=== PATIENT | female | born 1955 | race Caucasian/White ===

== ENCOUNTER 2017-07-21 13:27 | Emergency (ER) | payer OTHER ==
[~2017-07-21] VITALS: Ht 160 cm; Wt 125.0 kg
[2017-07-21 13:28] VITALS: BP 157/98; PULSE 77; RESP 14; TEMP 98.2; O2SAT 98
[2017-07-21] MEDS ORDERED: METF500T PO (14:10)
[2017-07-21] MEDS ORDERED: HYDR12.56 PO (14:10)
[2017-07-21] MEDS ORDERED: LISI10TA3 PO (14:10)
[2017-07-21] MEDS ORDERED: METO-309 PO (14:10)
[2017-07-21] MEDS ORDERED: CYMB30CA PO (14:10)
[2017-07-21] MEDS ORDERED: ALPR.5 PO (14:10)
--- NOTE | 2017-07-21 14:25 | PD ---
HPI Chief Complaint: Injury Time Seen by Provider: 14:14 Travel History International Travel<30 days: No Contact w/Intl Traveler<30days: No Traveled to known affect area: No History of Present Illness HPI 62-year-old female presents to the emergency department for evaluation of left ankle injury. Patient states that on Saturday, she twisted her left ankle. She states she did okay after this, the next day she noticed some swelling and pain in her ankle, especially in relation. She does report a history of surgery to the left ankle with plates and screws back in 2002. She does report some erythema to the left lateral ankle or her scar is. She denies any fevers or chills. She does have history of hypertension and [id number] diabetes. Patient reports ambulation exacerbates pain, rest alleviates pain. She denies any other complaints at this time. PFSH Past Medical History Blood Disorders: No Anxiety: Yes Cancer: No Cardiovascular Problems: Yes Diabetes: Yes Patient Takes Glucophage: Yes Diminished Hearing: No Endocrine: No Genitourinary: No Headaches: Yes Hypertension: Yes Immune Disorder: No Psychiatric: No Reproductive: No Respiratory: No Tetanus Vaccination: < 5 Years ?: Not Past Surgical History Abdominal Surgery: Yes (CHOLICYSTECTOMY) AICD: No Arteriovenous Shunt: No Cardiac Surgery: No Ear Surgery: No Endocrine Surgery: No Eye Surgery: No Genitourinary Surgery: No Gynecologic Surgery: Yes ( *2) Insulin Pump: No Joint Replacement: No Oral Surgery: No Pacemaker: No Thoracic Surgery: No Other Surgery: Yes Social History Alcohol Use: No Tobacco Use: No Substance Use: No Allergies-Medications (Allergen,Severity, Reaction): Coded Allergies: No Known Allergies (Verified Allergy, Mild, 12/16/03) Uncoded Allergies: NKA (Allergy, Unknown, 05/18/03) Reported Meds & Prescriptions Reported Meds & Active Scripts Active Reported Lisinopril 10 Mg Tab 10 Mg PO BID Hydrochlorothiazide 12.5 Mg Tab 12.5 Mg PO DAILY Cymbalta DR (Duloxetine HCl) 30 Mg Capdr 30 Mg PO BID Xanax (Alprazolam) 0.5 Mg Tab 0.5 Mg PO DAILY PRN Metformin (Metformin HCl) 500 Mg Tab 500 Mg PO BIDPC Lopressor (Metoprolol Tartrate) 50 Mg Tab 25 Mg PO BID Review of Systems Except as stated in HPI: all other systems reviewed are Neg Physical Exam Narrative GENERAL: Well-nourished, well-developed female patient ambulatory. Afebrile., SKIN: Focused skin assessment warm/dry. HEAD: Normocephalic. Atraumatic. EYES: No scleral icterus. No injection or drainage. NECK: Supple, trachea midline. No JVD or lymphadenopathy. CARDIOVASCULAR: Left pedal pulse is 2+. RESPIRATORY: No accessory muscle use. GASTROINTESTINAL: Abdomen soft, non-tender, nondistended. MUSCULOSKELETAL: No cyanosis. Patient swelling over left ankle with some erythema to left lateral ankle. She has full range of motion of the left ankle. She has full sensation to the distal aspect of the left lower extremity. BACK: Nontender without obvious deformity. No CVA tenderness. Data Data Last Documented VS Vital Signs Date Time Temp Pulse Resp B/P (MAP) Pulse Ox O2 Delivery O2 Flow Rate FiO2 07/21/17 13:28 98.2 77 14 157/98 (117) 98 Orders Orders Ankle, Complete ([id number]) (07/21/17 ) Crutches (07/21/17 14:50) Splint Or Brace Apply/Monitor (07/21/17 14:50) Cephalexin (Keflex) (07/21/17 15:00) Ibuprofen (Motrin) (07/21/17 15:00) MDM Medical Decision Making Medical Screen Exam Complete: Yes Emergency Medical Condition: Yes Medical Record Reviewed: Yes Interpretation(s) Last Impressions Ankle X-Ray 07/21/17 0000 Signed Impressions: Service Date/Time: Friday, July 21, 2017 14:25 - CONCLUSION: 1. Prior open reduction and internal fixation of bimalleolar fractures. Ankle mortise remains intact. 2. No acute fracture. 3. Diffuse soft tissue prominence may represent patient's baseline. Sanchez Chinchilla MD Differential Diagnosis Ankle sprain versus fracture versus cellulitis Narrative Course 62-year-old female presents to the emergency department for evaluation of ankle pain and swelling after she twisted it on Saturday. She does have some mild erythema over her scar to left lateral ankle. No evidence of septic joint. X- ray of the left ankle is ordered and pending. X-ray left ankle shows prior open reduction and internal fixation of bimalleolar fractures. Ankle mortise remains intact; No acute fracture; Diffuse soft tissue prominence may represent patient's baseline. Patient does have some mild erythema over the left lateral ankle. Patient will be started on Keflex for possible cellulitis. She is given ibuprofen for pain. She is also provided Norm bandage and crutches. She is to follow with her primary care physician orthopedist. She is return here for any acute worsening of symptoms. Patient verbalizes agreement and understanding. The patient was discharged in stable condition with instructions, including return instructions and follow up instructions. Diagnosis Primary Impression: Left ankle sprain Qualified Codes: S93.402A - Sprain of unspecified ligament of left ankle, initial encounter Additional Impression: Cellulitis of left ankle Referrals: Orthopedist Primary Care Physician Patient Instructions: General Instructions Additional Instructions: Norm bandage as needed for support. Use crutches as needed. Elevate. Ice for 20 minutes 4-5 times daily. Take antibiotic as directed until gone. Take ibuprofen as directed as needed with food for pain. Follow-up with your primary care physician or orthopedist. Return to the emergency department for any acute worsening of symptoms. Med/Other Pt SpecificInfo: Prescription(s) given Scripts Ibuprofen (Ibuprofen) 600 Mg Tab 600 MG PO TID Y for PAIN SCALE 1 TO 10, #21 TAB 0 Refills Prov: Jenelle Li 07/21/17 Cephalexin (Keflex) 500 Mg Capsule 500 MG PO Q6H for Infection for 10 Days, #40 CAP 0 Refills Prov: Jenelle Li 07/21/17 Disposition: 01 DISCHARGE HOME Condition: Stable Jenelle Li Jul 21, 2017 14:25
--- NOTE | 2017-07-21 14:39 | RADRPT ---
EXAM DATE/TIME: 07/21/2017 14:25 [facility] COMPARISON: No previous studies available for comparison. INDICATIONS : Left ankle pain, fell MEDICAL HISTORY : None. SURGICAL HISTORY : Hardware placement left ankle 2002 ENCOUNTER: Initial ACUITY: 1 day PAIN SCORE: 6/10 LOCATION: Left Ankle FINDINGS: Three view exam was performed of the left ankle. Sideplate and osseous screws secure what appears to be an old bimalleolar fracture. Ankle mortise is preserved. No acute fracture. There is diffuse soft tissue prominence which may represent patient's baseline. CONCLUSION: 1. Prior open reduction and internal fixation of bimalleolar fractures. Ankle mortise remains intact. 2. No acute fracture. 3. Diffuse soft tissue prominence may represent patient's baseline. Sanchez Chinchilla MD on July 21, 2017 at 14:37 Board Certified Radiologist. This report was verified electronically.
[2017-07-21] MEDS ORDERED: IBUP-232 PO (14:52)
[2017-07-21] MEDS ORDERED: CEPH-460 PO (14:52)
[2017-07-21] MEDS ORDERED: CEPHALEXIN MONOHYDRATE 500 MG CAP PO ONE (15:00)
[2017-07-21] MEDS ORDERED: IBUPROFEN 600 MG TAB PO ONE (15:00)
== END 2017-07-21 15:36 | disposition home or self-care (01) ==
LOC: NEPE 13:27
DX: S93.402A Sprain of unspecified ligament of left ankle, initial encounter (principal); L03.116 Cellulitis of left lower limb; X50.1XXA Overexertion from prolonged static or awkward postures, initial encounter
CPT/HCPCS: 73610; 99283; E0113